=== PATIENT | male | born 1950 | race Caucasian/White ===

== ENCOUNTER 2023-09-15 09:49 | Day surgery (SDC) | payer MEDICARE, BC ==
[2023-09-15] MEDS: Lactated Ringers 1,000 ML IV SCH (10:02)
[2023-09-15] MEDS ORDERED: fentaNYL 50 MCG/ML SDV ONE (10:15)
[2023-09-15] MEDS ORDERED: Glycopyrrolate 0.2 MG/ML SDV ONE (10:15)
[2023-09-15] MEDS ORDERED: Propofol 200 MG/20 ML SDV ONE (10:15)
[2023-09-15] MEDS ORDERED: Ketamine 200 MG/20 ML MDV ONE (10:15)
== END 2023-09-15 11:40 | disposition home or self-care (01) ==
LOC: CC.SDS 09:49
PROVIDERS: ATTEND Family Medicine
DX: Z12.11 Encounter for screening for malignant neoplasm of colon (principal); D12.5 Benign neoplasm of sigmoid colon; K57.30 Diverticulosis of large intestine without perforation or abscess without bleeding; Z80.0 Family history of malignant neoplasm of digestive organs; I10 Essential (primary) hypertension; E78.00 Pure hypercholesterolemia, unspecified; I25.10 Atherosclerotic heart disease of native coronary artery without angina pectoris; Z95.5 Presence of coronary angioplasty implant and graft; Z79.82 Long term (current) use of aspirin; Z79.899 Other long term (current) drug therapy
CPT/HCPCS: 00811; 88305; 99100; J2704; J3010; J3490; J7120